=== PATIENT | female | born 1985 | race Caucasian/White ===

== ENCOUNTER 2018-01-14 13:49 | Outpatient (CLI) | payer MEDICAID ==
[2018-01-14 16:32] LABS: ADD UMIC YES; UR ASCORBIC ACID NEGATIVE (NEGATIVE); UR BILIRUBIN (Dip) NEGATIVE (NEGATIVE); UR BLOOD (Dip) NEGATIVE (NEGATIVE); UR CLARITY SLIGHTLY CLOUDY (CLEAR); UR COLOR YELLOW (YELLOW); UR GLUCOSE (Dip) NEGATIVE (NEGATIVE); UR KETONES (Dip) 1+ mg/dL (NEGATIVE); UR LEUKOCYTE ESTERASE (Dip) TRACE Leu/ul (NEGATIVE); UR MUCUS FEW /HPF (NONE SEEN); UR NITRITE (Dip) NEGATIVE (NEGATIVE); UR RBC 0 /HPF (0-5); UR SPECIFIC GRAVITY (Dip) 1.028 (1.003-1.030); UR SQUAMOUS EPITHELIAL CELL MODERATE /HPF (FEW); UR TOTAL PROTEIN (Dip) NEGATIVE (NEGATIVE); UR UROBILINOGEN (Dip) 1+ mg/dL (NEGATIVE); UR WBC 1 /HPF (0-5)
[2018-01-14] MEDS: LACTATED RINGER'S 1,000 ML IV ×2 (16:44→19:23)
[2018-01-14] MEDS: TERBUTALINE 1 MG/ML INJ SC (19:22)
[2018-01-14] MEDS: HYDROCODONE/APAP (5/325) TAB PO (19:22)
== END 2018-01-14 21:56 | disposition home or self-care (01) ==
LOC: OBT 13:49 → L-D 13:49 → OBT 21:56
DX: O47.1 False labor at or after 37 completed weeks of gestation (principal); Z3A.37 37 weeks gestation of pregnancy
CPT/HCPCS: 36415; 76815; 76818; 81001; 96360; 96361; 96372